=== PATIENT | female | born 2000 | race Two or more races ===

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

== ENCOUNTER 2022-08-12 02:19 | Emergency (ER) | payer OTHER ==
[~2022-08-12] VITALS: Ht 157.5 cm; Wt 81.0 kg
[~2022-08-12 02:19] MED LIST: IBUP800T27 PO; SULF800T7 PO
[2022-08-12] MEDS ORDERED: KETOROLAC TROMETH 60MG/2ML VIAL IM ONE (05:15)
[2022-08-12] MEDS ORDERED: cefTRIAXone SOD 1,000 MG VL IM ONE (05:15)
[2022-08-12 06:39] VITALS: BP 132/74
== END 2022-08-12 05:59 | disposition home or self-care (01) ==
LOC: ER 02:19
DX: L05.01 Pilonidal cyst with abscess (principal); J45.909 Unspecified asthma, uncomplicated; I10 Essential (primary) hypertension; Z98.890 Other specified postprocedural states
CPT/HCPCS: 10080; 99282; J0696; J1885